=== PATIENT | female | born 1950 | race Caucasian/White ===

== ENCOUNTER 2019-08-14 14:23 | Emergency (ER) | payer MEDICARE ==
[2019-08-14 15:28] VITALS: BP 155/72
[2019-08-14] MEDS ORDERED: Bupivacaine 0.25% SDV* 30 ML INJ ONE (15:31)
[2019-08-14] MEDS ORDERED: Bupivacaine 0.25% SDV PF* 10 ML VIAL INJ ONE (15:34)
--- NOTE | 2019-08-14 16:18 | UC ---
Laceration HPI - HPI Summary HPI Summary: 68 yo WF presents with right thenar eminence 4cm laceration on broken smoothie glass that broke on granite countertop - History Of Current Complaint Chief Complaint: UCLaceration Stated Complaint: RT HAND LAC Time Seen by Provider: 08/14/19 15:23 Hx Obtained From: Patient Laceration Location: Hand - right thenar eminence Mechanism Of Injury: Sharp Trauma Onset/Duration: Sudden Onset Severity: Moderate Pain Intensity: 1 Aggravating Factors: Nothing - Allergies/Home Medications Allergies/Adverse Reactions: Allergies Allergy/AdvReac Type Severity Reaction Status Date / Time azithromycin Allergy Hives Verified 08/14/19 15:30 nitrofurantoin Allergy Hives Verified 08/14/19 15:30 Home Medications: Home Medications Escitalopram * [Lexapro *] 20 mg PO DAILY 08/14/19 [History Confirmed 08/14/19] Naproxen Sodium [Aleve] 440 mg PO QPM 08/14/19 [History Confirmed 08/14/19] Quetiapine Fumarate [Seroquel 50 mg tab] 50 mg PO QPM 08/14/19 [History Confirmed 08/14/19] PMH/Surg Hx/FS Hx/Imm Hx Previously Healthy: Yes - Surgical History Surgical History: Yes Surgery Procedure, Year, and Place: 2 c-sections; right wrist, right shoulder, left knee- last surgery was the left knee 07/2017 - Family History Known Family History: Positive: Hypertension, Non-Contributory - Social History Alcohol Use: None Substance Use Type: None Smoking Status (MU): Never Smoked Tobacco When Did the Patient Quit Smoking/Using Tobacco: college - Immunization History Most Recent Tetanus Shot: may be UTD Review of Systems All Other Systems Reviewed And Are Negative: Yes Constitutional: Positive: Negative Skin: Positive: Other - see HPI Eyes: Positive: Negative ENT: Positive: Negative Respiratory: Positive: Negative Cardiovascular: Positive: Negative Gastrointestinal: Positive: Negative Genitourinary: Positive: Negative Motor: Positive: Negative Neurovascular: Positive: Negative Neurological/Mental Status: Positive: Negative Psychological: Positive: Negative Is Patient Immunocompromised?: No Physical Exam - Summary Physical Exam Summary: Vital Signs Reviewed: Yes Appearance: Positive: No Pain Distress Skin: Positive: Warm, jagged 4cm laceration on right thenar eminence, slowly oozing blood, nVI, ROM intact Head/Face: Positive: Normal Head/Face Inspection Eyes: Positive: Normal ENT: Positive: Normal ENT inspection Dental: Negative: Cervical Lymphadenopathy Neck: Positive: Supple Respiratory/Lung Sounds: Positive: Clear to Auscultation Cardiovascular: Positive: Normal, RRR, S1, S2 Abdomen Description: Positive: Nontender Musculoskeletal: Positive: Normal Neurological: Positive: Normal Psychiatric: Positive: Normal Triage Information Reviewed: Yes Vital Signs: Initial Vital Signs Temp 36.6 C 08/14/19 15:18 Pulse 62 08/14/19 15:18 Resp 18 08/14/19 15:18 BP 155/72 08/14/19 15:18 Pulse Ox 100 08/14/19 15:18 Laceration Repair - Laceration Repair 7 Description: Linear Laceration Size After Repair: Length (cm) - 4 Modified For Repair: No Type Injection: Local Anesthesia Used: 0.25% Marcaine Cleansing Completed Via Routine Prep: Yes Irrigation With Pressure Irrigation Device: No Closure Material: Sutures Closure Method: Single Layer Suture Of: Skin Suture Type: Prolene - 7 sutures placed Laceration Course/Dx - Differential Dx - Laceration/Wound Differental Diagnoses: Avulsion, Laceration - Diagnosis Provider Diagnosis: Hand laceration Discharge ED - Sign-Out/Discharge Documenting (check all that apply): Patient Departure All imaging exams completed and their final reports reviewed: No Studies - Discharge Plan Condition: Stable Disposition: HOME Patient Education Materials: Care For Your Stitches (ED), Laceration (ED), Finger Laceration (ED) Referrals: Alicia Golden MD [Primary Care Provider] - Additional Instructions: pt will be traveling to [place], 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
== END 2019-08-14 16:33 | disposition home or self-care (01) ==
LOC: UCCORT 14:23
DX: S61.411A Laceration without foreign body of right hand, initial encounter (principal); Z88.1 Allergy status to other antibiotic agents; W25.XXXA Contact with sharp glass, initial encounter; Y92.9 Unspecified place or not applicable
CPT/HCPCS: 12002; 99211; G0463; J3490